=== PATIENT | male | born 1955 | race Hispanic/Latino ===

== ENCOUNTER → 2024-10-19 | Outpatient (REF) | payer MEDICARE ==
[2024-10-11 10:09] LABS: BASOPHILS % 0.4 % (0.0-1.0); EOSINOPHILS % 1.3 % (0.0-6.0); LYMPHOCYTES % 20.3 % (18.0-39.1); MONOCYTES % 6.6 % (4.4-11.3); NEUTROPHILS % 70.9 % (38.7-80.0); RED CELL DISTRIBUTION WIDTH 12.8 % (11.7-14.4)
[~2024-10-19] MED LIST: ATORVASTATIN CA20 MG PO; BENICAR20 MG PO; FENTANYL CITRATE/PF 100MCG/2 ML INJ ONE; HYOSCYAMINE SULFATE 0.5 MG/ML INJ ONE; LIDOCAINE HCL 2% LOCAL INJ 5 ML SDV VIAL INJ ONE; ONDANSETRON HCL INJ 2MG/ML 2ML 2 MG/ML VIAL ONE; PROPOFOL IV EMULSION 0 ML IV ONE; TRIJARDY XR 251 EACH PO
== END | disposition home or self-care (01) ==
LOC: OR 08:17 → RAD 11:00 → EDSTATUS 11:00
PROVIDERS: ATTEND Internal Medicine Gastroenterology
DX: R13.10 Dysphagia, unspecified (principal); Z01.810 Encounter for preprocedural cardiovascular examination; Z12.11 Encounter for screening for malignant neoplasm of colon; Z01.812 Encounter for preprocedural laboratory examination
CPT/HCPCS: 36415; 82948; 85025; 93005; J1980; J2003; J2405

== ENCOUNTER → 2024-11-09 | Day surgery (SDC) | payer MEDICARE ==
[~2024-11-09] MED LIST changes: -PROPOFOL IV EMULSION 0 ML IV ONE; +PROPOFOL IV EMULSION 50 ML IV ONE
[2024-11-09] MEDS: LACTATED RINGER'S 1,000 ML ONE (06:55)
[2024-11-09 08:27] VITALS: TEMP 97.1
[2024-11-09 08:50] VITALS: BP 152/84; PULSE 60; RESP 18; O2SAT 98
== END | disposition home or self-care (01) ==
LOC: OR 06:00
PROVIDERS: ATTEND Internal Medicine Gastroenterology
DX: K29.70 Gastritis, unspecified, without bleeding (principal); D12.2 Benign neoplasm of ascending colon; K25.9 Gastric ulcer, unspecified as acute or chronic, without hemorrhage or perforation; K31.89 Other diseases of stomach and duodenum; K20.90 Esophagitis, unspecified without bleeding; K59.00 Constipation, unspecified; K57.30 Diverticulosis of large intestine without perforation or abscess without bleeding; K64.8 Other hemorrhoids; E11.9 Type 2 diabetes mellitus without complications; I10 Essential (primary) hypertension; E78.5 Hyperlipidemia, unspecified; M10.9 Gout, unspecified; E66.9 Obesity, unspecified; Z79.84 Long term (current) use of oral hypoglycemic drugs; Z79.899 Other long term (current) drug therapy; Z68.37 Body mass index [BMI] 37.0-37.9, adult
CPT/HCPCS: 36415; 43239; 45380; 82948; J1980; J2003; J2405; J2470; J2704; J3010; J7121